=== PATIENT | female | born 1950 | race Caucasian/White ===

== ENCOUNTER 2021-01-12 07:55 | Emergency (ER) | payer MEDICARE, OTHER, SELFPAY ==
[2021-01-12] VITALS (8 sets, daily range): BP systolic 122–143; BP diastolic 57–80; PULSE 82–90; RESP 16–23; TEMP 36.8–37; O2SAT 88–94; BMI 37.0
--- NOTE | 2021-01-12 08:23 | EKG12_ITS ---
Test Reason : Blood Pressure : / mmHG Vent. Rate : 086 BPM Atrial Rate : 086 BPM P-R Int : 158 ms QRS Dur : 076 ms QT Int : 374 ms P-R-T Axes : 034 017 029 degrees QTc Int : 447 ms Normal sinus rhythm Normal ECG Confirmed by SYLVESTER SUTTON, NAYA ([id number]), editor map MIKE SWENSON ([id number]) on 01/16/2021 1:03:33 PM Referred By: DC Confirmed By:NAYA PHAN MD
[2021-01-12] MEDS: dexAMETHasone 10 MG/ML Vial IV (08:41)
[2021-01-12 08:42] LABS: Absolute Lymphocyte Count 0.89 X10^3/uL (0.83-4.51); Basophil# 0.01 X10^3/uL; Basophil% 0.2 % (0-1); Hematocrit 43.9 % (37-47); Hemoglobin 14.7 g/dL (12.0-15.0); Lymphocyte # 0.89 X10^3/ul (0.83-4.51); Lymphocyte % 14.4 % (19-41); Mean Corp Hgb Conc 33.5 g/dL (32-36); Mean Corpuscular Hgb 28.3 pg (27.0-32.0); Mean Corpuscular Volume 84.6 fL (81-99); Mean Platelet Vol. 10.3 fl (6.2-12.0); Monocyte# 0.25 X10^3/uL; NRBC Flagged by Analyzer 0 % (0-5); Neutrophil # 5.01 X10^3/uL (2.7-7.7); Neutrophil % 80.8 % (47-70); Platelet Count 173 K/mm3 (150-450); RBC Distribution Width CV 13.2 % (11.6-14.6); RBC Distribution Width SD 41.4 fl (35.1-43.9); Red Blood Count 5.19 M/mm3 (4.2-5.4); White Blood Count 6.2 K/mm3 (4.4-11.0)
--- NOTE | 2021-01-12 08:48 | RAD_ITS ---
STUDY: X-RAY CHEST REASON FOR EXAM: Female, 70 years old. 10 day history of cough with shortness of breath and hypoxia. TECHNIQUE: Single AP portable view of the chest. COMPARISON: Comparison is made with prior study dated 04/22/2017. FINDINGS: EKG electrodes are seen. Patchy infiltrates are seen in both lungs in a preferential peripheral distribution. Pneumonitis associated with Covid should be ruled out. There is no demonstrated pleural abnormality. Normal size heart. Normal mediastinum and carole. Normal visualized pulmonary arteries. Normal visualized aortic arch and descending thoracic aorta. Normal visualized thoracic spine. Normal visualized ribs, clavicles, and shoulders. There is no demonstrated abnormality of the visualized soft tissue structures of the upper abdomen. RAD/Chest 1 View (Portable) IMPRESSION: Bilateral patchy pulmonary infiltrates in a preferential peripheral distribution suggestive of Covid pneumonitis. Electronically Signed: Kevin Vaughn MD at 9:25 EDT , Service support ,
[2021-01-12 09:00] LABS: Anion Gap 12 (5-15); BUN 14 mg/dL (7-18); BUN/Creat Ratio 19.5 RATIO (10-20); Calcium,Total 8.6 mg/dL (8.5-10.1); Chloride 99 mmol/L (98-107); Creatinine, Serum 0.72 mg/dL (0.55-1.02); EST Glomerular Filtration Rate 86 mL/min (>60); Est Glom Filt Rate - Afr Amer 104 mL/min (>60); Estimated Creatinine Clearance 45.85 ml/min; Glucose 308 mg/dL (74-106); Magnesium 2.2 mg/dL (1.6-2.6); Potassium 3.8 mmol/L (3.5-5.1); Sodium Level 133 mmol/L (136-145); Troponin-I HS 6 pg/mL (3.0-54.0)
--- NOTE | 2021-01-12 11:20 | NURSING ---
DR FITZGERALD FOR ER DOC
--- NOTE | 2021-01-12 11:44 | EDS_ITS ---
HPI History of Present Illness Chief Complaint: Shortness of Breath Narrative Narrative: Patient is a 70-year-old female who states she was exposed to Covid by her approximately 7 to 10 days ago. She states she has been having increased congestion cough and shortness of breath. She denies any need for supplemental oxygen or history of lung disorder. However with the increased shortness of breath she was concerned and secondary to this presents for evaluation [facility] Home Medications metformin 1,000 mg PO BIDCM 04/11/17 [History Last Taken 04/11/17] multivitamin [Multiple Vitamins] 1 ea PO DAILY 04/11/17 [History Last Taken 04/11/17] oxycodone 5 mg PO Q4H PRN PRN #30 tab 04/30/17 [Rx Last Taken Unknown] acetaminophen [Tylenol] 650 mg PO Q6H PRN PRN tablet 05/02/17 [Rx Last Taken Unknown] aspirin 81 mg PO DAILY@0800 tab.chew 05/02/17 [Rx Last Taken Unknown] atorvastatin 20 mg PO QHS tablet 05/02/17 [Rx Last Taken Unknown] cefepime 2 g IV Q8 vial 05/02/17 [Rx Last Taken Unknown] fluconazole 400 mg PO DAILY tablet 05/02/17 [Rx Last Taken Unknown] ibuprofen 400 mg PO Q4H PRN PRN tablet 05/02/17 [Rx Last Taken Unknown] insulin aspart U-100 [Novolog Flexpen U-100 Insulin] See Protocol SUBCUT ACHS flexpen 05/02/17 [Rx Last Taken Unknown] insulin detemir U-100 [Levemir FlexTouch U-100 Insuln] 10 units SUBCUT QHS insuln.pen 05/02/17 [Rx Last Taken Unknown] ipratropium-albuterol 3 ml INHALATION Q4H.RT PRN ampul.neb 05/02/17 [Rx Last Taken Unknown] magnesium hydroxide 30 ml PO DAILY PRN PRN udc 05/02/17 [Rx Last Taken Unknown] metformin 500 mg PO BIDCM tablet 05/02/17 [Rx Last Taken Unknown] metronidazole 500 mg PO TID tablet 05/02/17 [Rx Last Taken Unknown] nut.tx.gluc intol,lf,soy-fiber [Glucerna 1.2 Don] 120 ml PO 4X/DAY liquid 05/02/17 [Rx Last Taken Unknown] ondansetron HCl (PF) 4 mg IV Q8H PRN PRN vial 05/02/17 [Rx Last Taken Unknown] potassium chloride [Klor-Con M20] 20 meq PO BIDCM tablet 05/02/17 [Rx Last Taken Unknown] sodium chloride 0.9 % (flush) [Normal Saline Flush] 5 - 30 ml IV UD PRN syringe 05/02/17 [Rx Last Taken Unknown] vancomycin in dextrose 5 % 1,000 mg IV Q12H bag 05/02/17 [Rx Last Taken Unknown] dexamethasone [Decadron] 6 mg PO DAILY #10 tab 01/12/21 [Rx Last Taken Unknown] Allergy/AdvReac Type Severity Reaction Status Date / Time No Known Allergies Allergy Verified 01/12/21 07:58 Social History Smoking Status: Never smoker ROS ROS ED Constitutional Constitutional ED: Denies chills or fever(s) ENT ENT ED: Reports rhinorrhea and sore throat Cardiovascular Cardiovascular: Denies chest pain Respiratory/Chest Respiratory/Chest: Reports cough and dyspnea Gastrointestinal Gastrointestinal: Denies abdominal pain, diarrhea, nausea or vomiting Genitourinary Genitourinary ED: Denies dysuria Musculoskeletal Musculoskeletal: Reports myalgias Integumentary Denies rash Neurologic Neurologic: Denies headache(s) Hematologic/Lymphatic Hematologic/Lymphatic: Denies easy bleeding or easy bruising EXAM Physical Exam Const Vital Signs: 01/12/21 07:56 01/12/21 08:37 01/12/21 08:38 Temperature 98.6 F 98.4 F Temperature Source Temporal Oral Pulse Rate 87 86 Respiratory Rate 22 H 21 H Respiratory Effort Short of Breath Respiratory Depth Normal Respiratory Pattern Normal Blood Pressure 143/66 H 138/74 H Blood Pressure Mean 91 95 Pulse Ox 90 94 Oxygen Delivery Method Room Air Room Air Room Air Oxygen Flow Rate (L/min) 01/12/21 09:47 01/12/21 11:05 01/12/21 11:08 Temperature 98.2 F Temperature Source Oral Pulse Rate 90 85 Respiratory Rate 23 H 16 Respiratory Effort Respiratory Depth Respiratory Pattern Blood Pressure 122/57 H 138/75 H Blood Pressure Mean 78 96 Pulse Ox 91 88 92 Oxygen Delivery Method Room Air Room Air Nasal Cannula Oxygen Flow Rate (L/min) 2 Positive well nourished and well developed General Appearance ED: well developed HEENT Reports moist mucous membranes HEENT Narrative: Cobblestoning the posterior pharynx consistent with sinus drainage but no airway edema or compromise Eyes PERRL and EOMs intact bilaterally Neck supple and no JVD Neck Narrative: Positive anterior cervical lymphadenopathy noted Resp Resp Narrative: Breath sounds are diminished throughout with diffuse expiratory wheeze and rhonchi in the bilateral bases Cardio regular rate and regular rhythm GI non-tender and non-distended Auscultation: normoactive bowel sounds Palpation: soft Extremity normal to inspection Extremity Narrative: No asymmetric edema no pitting edema negative Homans' sign bilaterally Neuro oriented x3 and CN's II-XII intact bilaterally Sensorium / Orientation: alert Psych mental status grossly normal Skin no rashes or lesions noted Rashes: no rashes MDM MDM MDM Narrative Medical decision making narrative: Patient presented to the ER with apparent pulse ox ranging between 90 and 93%. With her constellation of symptoms and physical exam her history is most consistent with breakthrough Covid. Chest x- ray revealed bilateral infiltrates and Covid test was positive consistent with Covid pneumonia. Her pulse ox dropped to 88% on room air but did quickly rebound with just a few liters of nasal cannula oxygen. We discussed admission based on her hypoxia but as she is only acquiring a few liters of oxygen and I have the ability to place her on nasal cannula oxygen at home I do not feel she has to be placed at this time. Patient will be given Decadron and nasal cannula oxygen and will return to the hospital symptoms fail to improve despite the symptomatic care Lab Data Labs: Laboratory Results - last 24 hr 01/12/21 01/12/21 08:34 08:34 WBC 6.2 RBC 5.19 Hgb 14.7 Hct 43.9 MCV 84.6 MCH 28.3 MCHC 33.5 RDW Std Deviation 41.4 RDW Coeff of Lili 13.2 Plt Count 173 MPV 10.3 Immature Gran % (Auto) 0.600 Neut % (Auto) 80.8 H Lymph % (Auto) 14.4 L [place] % (Auto) 4.0 Eos % (Auto) 0.0 Baso % (Auto) 0.2 Absolute Neuts (auto) 5.0 Absolute Lymphs (auto) 0.89 Nucleated RBC % 0 Sodium 133 L Potassium 3.8 Chloride 99 Carbon Dioxide 22.0 Anion Gap 12 BUN 14 Creatinine 0.72 Estim Creat Clear Calc 45.85 Est GFR (MDRD) Af Amer 104 Est GFR (MDRD) Non-Af 86 BUN/Creatinine Ratio 19.5 Glucose 308 H Calcium 8.6 Magnesium 2.2 Troponin I High Sens 6 Radiography Diagnostic Testing: Radiology Impression Chest X-Ray 01/12/21 08:48 IMPRESSION: Bilateral patchy pulmonary infiltrates in a preferential peripheral distribution suggestive of Covid pneumonitis. Electronically Signed: Kevin Vaughn MD at 9:25 EDT , Service support , Discharge Plan Triage Chief Complaint: Shortness of Breath ED Provider: Kojo Valencia Dx/Rx/DC Orders Clinical Impression: Pneumonia due to 2019 novel coronavirus, Hypoxia Instructions: Coronavirus Disease 2019 (COVID-19): Caring for Yourself or Others Prescriptions: New dexamethasone [Decadron] 6 mg tablet 6 mg PO DAILY Qty: 10 RF: 0 No Action metformin 1,000 MG tablet 1,000 mg PO BIDCM RF: 0 multivitamin [Multiple Vitamins] 1 EACH tablet 1 ea PO DAILY RF: 0 oxycodone 5 MG tablet 5 mg PO Q4H PRN PRN (Reason: Pain) Qty: 30 RF: 0 fluconazole 100 MG tablet 400 mg PO DAILY RF: 0 metformin 500 MG tablet 500 mg PO BIDCM RF: 0 acetaminophen [Tylenol] 325 MG tablet 650 mg PO Q6H PRN PRN (Reason: FEVER) RF: 0 atorvastatin 20 MG tablet 20 mg PO QHS RF: 0 ipratropium-albuterol 3 ML solution for nebulization 3 ml inhalation Q4H.RT PRN (Reason: SOB &/OR WHEEZING) RF: 0 cefepime 2 GM recon soln 2 g IV Q8 RF: 0 metronidazole 500 MG tablet 500 mg PO TID RF: 0 potassium chloride [Klor-Con M20] 20 MEQ tablet 20 meq PO BIDCM RF: 0 magnesium hydroxide 30 ML suspension 30 ml PO DAILY PRN PRN (Reason: Constipation) RF: 0 ibuprofen 400 MG tablet 400 mg PO Q4H PRN PRN (Reason: Mild Pain (1-3/10)) RF: 0 aspirin 81 MG tablet,chewable 81 mg PO DAILY@0800 RF: 0 sodium chloride 0.9 % (flush) [Normal Saline Flush] 10 ML syringe 5 - 30 ml IV UD PRN (Reason: Saline Flush) RF: 0 insulin aspart U-100 [Novolog Flexpen U-100 Insulin] 100 UNITS/ML insulin pen See Protocol units subcut ACHS RF: 0 vancomycin in dextrose 5 % 1,000 MG/200 ML piggyback 1,000 mg IV Q12H RF: 0 insulin detemir U-100 [Levemir FlexTouch U-100 Insuln] 100 UNITS/ML insulin pen 10 units subcut QHS RF: 0 ondansetron HCl (PF) 4 MG/2 ML solution 4 mg IV Q8H PRN PRN (Reason: Nausea) RF: 0 nut.tx.gluc intol,lf,soy-fiber [Glucerna 1.2 Don] 120 ML liquid 120 ml PO 4X/DAY RF: 0 Primary Care Provider: Donta Geiger Referrals: Donta Geiger MD [Primary Care Provider] - Disposition Disposition: Home, Self Care
--- NOTE | 2021-01-12 12:00 | CM.ED ---
Addendum entered by Eli Hammond 01/12/21 13:18: SHAZIA called [employer] and spoke to Magalie. She said that all the paperwork is in order and that patient will be discharged with home oxygen from the hospital and [employer] tech will provide tank to the ED. SHAZIA updated [facility] and provided patient with discharge home tank. SHAZIA called Cari at [facility] and requested home oxygen tanks to be restocked at hospital. She advised that she would have tech call this blog writer. Plan: Home with home oxygen. [facility] rep Magalie said that all paperwork was complete. Eli CHENG Original Note: SHAZIA Note Referral Source: advanced manager Reason: Home Oxygen SHAZIA was contacted by Jaye ALEXANDRE who indicated that patient needed oxygen to go home. [facility] with no answer and hung up. SHAZIA then contacted [facility] in [place] phone number [phone]. SHAZIA spoke to Foster regarding referral. SHAZIA faxed referral packet to [facility]. Confirmation Confirmed. Plan: Home oxygen at discharge Eli CHENG
--- NOTE | 2021-01-13 13:34 | CASEMGMT ---
[facility]DOM[facility] LOPEZ COVID ED Home O2 Follow-up: This BAL[facility] LOPEZ attempted to contact pt via phone regarding follow-up to her discharge from the ED with home O2. Nonidentifying voicemail received and nondescript message left requesting a return call. Alessandro Blake RN CM
--- NOTE | 2021-01-16 12:36 | CASEMGMT ---
RN JOHN ED COVID Home O2 Follow-up: This RN CM attempted to contact pt via phone in follow-up to discharge with home O2. Nondescript voicemail received and nondescript message left requesting a return call. Alessandro Blake RN CM
== END 2021-01-12 13:02 | disposition home or self-care (01) ==
PROVIDERS: Emergency Provider Emergency Medicine; PCP Family Medicine
DX: U07.1 COVID-19 (principal); J12.82 Pneumonia due to coronavirus disease 2019; R09.02 Hypoxemia; Z79.82 Long term (current) use of aspirin; Z79.4 Long term (current) use of insulin; Z79.899 Other long term (current) drug therapy
CPT/HCPCS: 71045; 80048; 83735; 84484; 85025; 87426; 93005; 94640; 96374; 99283; A4216